=== PATIENT | male | born 1980 | race Caucasian/White ===

== ENCOUNTER 2017-11-05 08:33 | Observation (INO) | payer BC ==
[~2017-11-05 08:33] MED LIST: CEFAZOLIN 1 GM INJ; KETAMINE (100 MG/ML) 5 ML VIAL; ONDANSETRON 4 MG INJ
[2017-11-05] MEDS ORDERED: FENTAnyl 50 MCG/ML VIAL ×2 (10:08→14:42)
[2017-11-05] MEDS ORDERED: MIDAZOLAM 1 MG/ML 2 ML INJ ×2 (10:08)
[2017-11-05] MEDS ORDERED: PROPOFOL 20 ML (10:09)
[2017-11-05] MEDS ORDERED: ROCURONIUM 50 MG INJ (10:09)
[2017-11-05] MEDS ORDERED: SUCCINYLCHOLINE CHLORIDE 100 MG/5 ML SYG IV (10:09)
[2017-11-05] MEDS ORDERED: DEXAMETHASONE 4 MG/ML 1 ML INJ (10:10)
[2017-11-05] MEDS ORDERED: METOCLOPRAMIDE 10 MG INJ (10:10)
[2017-11-05] MEDS ORDERED: LIDOCAINE 2% (SDV) 5 ML INJ (10:10)
[2017-11-05] MEDS ORDERED: SUGAMMADEX SODIUM 200 MG/2 ML VIAL IV (10:33)
[2017-11-05] MEDS: THROMBIN 5000 UNIT VIAL (11:12)
[2017-11-05] MEDS: GELATIN SIZE 100 SPONGE (11:12)
[2017-11-05] MEDS: POLYMYXIN/BACITRACIN 1L IRRIG (11:12)
[2017-11-05] MEDS: BUPIVACAINE 0.5%/EPI (SDV) 30 ML INJ (11:12)
[2017-11-05] MEDS ORDERED: THROMBIN 5000 UNIT VIAL (11:13)
[2017-11-05] MEDS ORDERED: ACETAMINOPHEN 1000MG/100ML IV 100 ML (13:39)
[2017-11-05] MEDS ORDERED: HYDROmorphONE 0.5 MG/0.5 ML SYG IV (14:00)
[2017-11-05] MEDS ORDERED: PROCHLORPERAZINE 10 MG TAB PO (14:00)
[2017-11-05] MEDS ORDERED: NACL 0.9% 3 ML SYG IV (14:00)
[2017-11-05] MEDS ORDERED: ONDANSETRON 4 MG INJ IV ×2 (14:00→14:30)
[2017-11-05] MEDS ORDERED: HYDROCODONE/APAP (5/325) TAB PO (14:00)
[2017-11-05] MEDS ORDERED: NALOXONE (0.4 MG/ML) INJ IV (14:00)
[2017-11-05] MEDS ORDERED: ACETAMINOPHEN 325 MG TAB PO (14:00)
[2017-11-05] MEDS ORDERED: LABETALOL HCL 20MG INJ (14:05)
[2017-11-05] MEDS ORDERED: FENTAnyl 50 MCG/ML VIAL IV (14:30)
[2017-11-05] MEDS ORDERED: MEPERIDINE 25 MG INJ IV (14:30)
[2017-11-05] MEDS ORDERED: HYDROmorphONE 1 MG/5 ML IV SYRINGE IV ×2 (14:30)
[2017-11-05] MEDS ORDERED: DIPHENHYDRAMINE 50 MG INJ IV (14:30)
[2017-11-05] MEDS ORDERED: hydrALAzine 20 MG INJ IV (14:30)
[2017-11-05] MEDS ORDERED: LABETALOL HCL 20MG INJ IV (14:30)
[2017-11-05] MEDS ORDERED: IPRATROPIUM (NEB) 0.5 MG/2.5 ML AMP HHN (14:30)
[2017-11-05] MEDS: FENTAnyl 50 MCG/ML VIAL IV ×2 (14:50→14:57)
[2017-11-05] MEDS: HYDROmorphONE 1 MG/5 ML IV SYRINGE IV ×2 (14:52→14:57)
[2017-11-05] MEDS: CEFAZOLIN 1 GM/50 ML (PMX) 50 ML IVPB (17:17)
[2017-11-05] MEDS: HYDROCODONE/APAP (5/325) TAB PO (18:08)
== END 2017-11-05 18:45 | disposition home or self-care (01) ==
LOC: SDS 08:33 → MS1 14:00
DX: M51.17 Intervertebral disc disorders with radiculopathy, lumbosacral region (principal); M19.90 Unspecified osteoarthritis, unspecified site
CPT/HCPCS: 63030; 72100; 97161; 99217